=== PATIENT | female | born 1970 | race African-American/Black ===

== ENCOUNTER 2020-10-24 05:27 | Day surgery (SDC) | payer BC, OTHER ==
[2020-10-23 14:24] VITALS: BMI 31.6
[2020-10-24] MEDS ORDERED: PROPOFOL 20 ML ONE ×2 (14:33)
[2020-10-24] MEDS ORDERED: MIDAZOLAM HCL 2 MG/2 ML SINGLE DOSE VIAL ONE (14:33)
[2020-10-24] MEDS ORDERED: ceFAZolin 2 GRAM PREMIX BAG IVPB ONE (14:40)
[2020-10-24] MEDS ORDERED: IBUPROFEN 400 MG TABLET (FP) PO PRN (15:40)
[2020-10-24] MEDS ORDERED: ACETAMINOPHEN 325 MG TABLET (FP) PO PRN (15:40)
[2020-10-24] MEDS ORDERED: oxyCODONE HCL 5 MG TABLET PO PRN ×2 (15:40→15:57)
[2020-10-24] MEDS ORDERED: LACTATED RINGERS SOLUTION 1,000 ML IV SCH ×2 (15:45→16:00)
[2020-10-24] MEDS ORDERED: ONDANSETRON 4 MG/2 ML VIAL IVPUSH PRN (15:57)
[2020-10-24] MEDS ORDERED: ACETAMINOPHEN 325 MG TABLET (FP) ONE (17:43)
[2020-10-24 19:02] VITALS: BP 125/78; PULSE 68; TEMP 97
== END 2020-10-24 17:47 | disposition home or self-care (01) ==
LOC: JASU-SURG 05:27
PROVIDERS: ATTEND Obstetrics & Gynecology
PROC: 0U5B8ZZ Destruction of Endometrium, Via Natural or Artificial Opening Endoscopic (ICD-10-PCS; principal; 2020-10-24 15:00)
PROC: 0UDB7ZX Extraction of Endometrium, Via Natural or Artificial Opening, Diagnostic (ICD-10-PCS; 2020-10-24 15:00)
DX: N92.0 Excessive and frequent menstruation with regular cycle (principal); N84.0 Polyp of corpus uteri; D64.9 Anemia, unspecified
CPT/HCPCS: 86850; 86900; 86901; 88305-TC; 94760